=== PATIENT | female | born 1975 | race Caucasian/White ===

== ENCOUNTER 2017-04-04 19:15 | Inpatient (IN) | payer SELFPAY ==
[~2017-04-04] VITALS: Ht 175.3 cm; Wt 57.6 kg
--- NOTE | ~2017-04-04 | PN ---
Unit #: [id number] #: [id number] Patient: MILLI LO [id number] [facility] [address] [place] [address] [id number] I MR#: [id number] NAME: MILLI LO ROOM: P254 Age: 41 Sex: F Admission Date: 04/04/2017 : 1975 Attending Physician: Babak Lux M.D. Admitting Physician: Babak Lux M.D. Primary Care Physician: Primary Care Physician Lauren WOODARD PROGRESS NOTES DATE April 09, 2017 DISCUSSION Ms. Lo is a 41-year-old white female, who was seen today and chart was reviewed and the case was discussed with the staff. She has been anxious, withdrawn, and the staff reports that she has been having (1) behavior. Meanwhile, she has been coming to therapy groups and has been participating. MENTAL STATUS EXAMINATION Young white female, who was casually dressed with fair personal hygiene and appears to be in no acute distress or discomfort. She was awake and alert on interaction with intact orientation. Her mood was anxious with a congruent affect. Her speech is slow and goal-directed. She denies any suicidal or homicidal ideations. Her insight and judgment remain slightly impaired. TREATMENT PLAN 1. We will continue her on her current medications and treatment protocol, and will monitor her response to the medications, and make further adjustments as needed. 2. We will continue to followup. Dictated by... Wesley Sanchez/paige TD: 04/10/2017 09:44 JOB #: [id number] Unit #: [id number] #: [id number] Patient: MILLI LO PROGRESS NOTES Page 1 of 1 X Babak Lux MD PROGRESS NOTE
--- NOTE | ~2017-04-04 | PN ---
Unit #: [id number] #: [id number] Patient: MILLI LO [id number] [facility] [address] [place] [address] [id number] I MR#: [id number] NAME: MILLI LO ROOM: 79 Age: 41 Sex: F Admission Date: 04/04/2017 : 1975 Attending Physician: Babak Lux M.D. Admitting Physician: Babak Lux M.D. Primary Care Physician: Primary Care Physician Lauren WOODARD PROGRESS NOTES DATE April 07, 2017 DISCUSSION Ms. Lo is a 41-year-old white female, who was seen today and chart was reviewed and the case was discussed with the staff. She has been anxious, withdrawn, and seclusive to herself and reports persistent depressive symptoms and treatment for depression. Meanwhile, she has been taking the medications and tolerating them fairly well with no reported side effects. MENTAL STATUS EXAMINATION Middle-aged white female, who was casually dressed with fair personal hygiene and appears to be in no acute distress or discomfort. The patient was awake and alert on interaction with intact orientation. Her mood is anxious and depressed with a congruent affect. Her speech is slow and goal-directed. She denies any suicidal or homicidal ideations. Her insight and judgment remain slightly impaired. TREATMENT PLAN 1. We will continue her on her current medications and treatment protocol, and will monitor her response to the medications, and make further adjustments as needed. 2. We will continue to followup. Dictated by... Wesley Sanchez/paige TD: 04/07/2017 08:13 JOB #: [id number] Unit #: [id number] #: [id number] Patient: MILLI LO PROGRESS NOTES Page 1 of 1 X Babak Lux MD PROGRESS NOTE
--- NOTE | ~2017-04-04 | A ---
[facility] Nutrition Therapy DATE: 04/05/17 Patient: MILLI LOCKE Physician: AFAIRF Address: [address] [place] [address] Room/Bed: [address], Zip: [place] [address] Admit Date: 04/04/17 Date of : [birth year] Height: 5 9 Weight: [phone] NUTRITIONAL ASSESSMENT: REASON: LOW BMI (18.8) PATIENT ADMITTED FOR SI AND SUBSTANCE ABUSE PMH: NONE Anthropometrics: HT: 69", WT: 127#, BMI: 18.8, %IBW: 88 Labs: 04/05/17- GLU: 137, ALL OTHER NURTIONAL LABS WNL Meds: CELEXA, DESYREL, DETOX PROTOCOL Assessment: PATIENT IS A 41 Y/O FEMALE ADMITTED FOR SI AND SUBSTANCE ABUSE. PATIENT IS CURRENLTY UNEMPLOYED, HOMELESS, SMOKES 1-2 PPD, USES HEROIN, AND HAS A HX OF AMPHETAMINE AND ETOH USE. IT IS NOTED THAT PATIENT HAS A HX OF INPATIENT PSYCH AND CHEMICAL DEPENDENCY TREATMENT. UPON ADMIT PATIENT STATED A POOR APPETITE WITH A 30# WEIGHT LOSS X WEEKS, AND SHE HAD NOT SLEPT IN THE LAST 3 DAYS. WEIGHT HX PER [facility] SHOWS A 16# WEIGHT LOSS SINCE AUG 2016. THERE ARE NO SKIN OR GI ISSUES NOTED ATT. PATIENT IS ON A REGULAR DIET WITH LARGE PORTION ENTREES. Dx: UNINTENTIONAL WEIGHT LOSS R/T CURRENT CONDITION, SUBSTANCE ABUSE AEB WEIGHT LOSS, DECREASED APPETITE Intervention: REGULAR DIET, LARGE PORTIONS, MEDS PER MD, PSYCH Monitoring, Evaluation and Goals: 1. ADEQUATE PO INTAKES >50% OF MEALS 2. PREVENT, CORRECT MICRO/MACRO NUTRIENT DEFICIENCIES 3. WEIGHT; PROMOTE A STEADY WEIGHT GAIN TOWARDS A HEALTHY BMI OF 19-25, PREVENT WEIGHT LOSS MONITOR: WEIGHTS, LABS, PO/FLUID INTAKES Recommendations: 1. CONTINUE REGULAR DIET WITH LARGE PORTION ENTREES TOLERATED. OFFER SNACKS BETWEEN MEALS 2. ENCOURAGE ADEQUATE PO AND FLUID INTAKES 3. OBTAIN WEIGHTS ROUTINELY (EVERY 3-4 DAYS) 4. IF PO INTAKES ARE BELOW 50% OF MEALS PLEASE ORDER ENSURE BID TO PROMOTE ADEQUATE KC[facility] Nutrition Therapy DATE: 04/05/17 Patient: MILLI LOCKE Physician: AFAIRF Address: [address] [place] [address] Room/Bed: [address], Zip: [place] [address] Admit Date: 04/04/17 Date of : [birth year] Height: 5 9 Weight: [id number] TO F/U PER PROTOCOL AND PRN R/T PATIENT MILDLY COMPROMISED Respectfully, ASHLEY ALEXANDRE, RD, LD [facility] cc: client file
--- NOTE | ~2017-04-04 | PA ---
Unit #: [id number] #: [id number] Patient: MILLI LO [id number] [facility] [address] [place] [address] [id number] I MR#: [id number] NAME: MILLI LO ROOM: P179 Age: 41 Sex: F Admission Date: 04/04/2017 : 1975 Date of Assessment: 04/05/2017 Attending Physician: Babak Lux M.D. Admitting Physician: Babak Lux M.D. Primary Care Physician: Primary Care Physician No PSYCHIATRIC ASSESSMENT DATE OF SERVICE 04/05/2017. IDENTIFYING DATA Ms. Lo is a 41-year-old single white female, who is a resident of [place], [place], was self-referred to the hospital on a voluntary basis. CHIEF COMPLAINT "I'm really paranoid, but I'm also ." HISTORY OF PRESENT ILLNESS Ms. Lo is a 41-year-old white female with history of substance abuse and mood disorder, who was self-referred to the hospital, reporting anxiety and paranoia and that she is depressed and that she has never been in trouble before, but now she is on probation and that a man got her in trouble for heroin and does report increasing anxiety, depression, irritability, restlessness, feelings of hopelessness and helplessness, and suicidal ideations and stating "anything I don't care, I don't want to be here anymore." The patient stated that she has had thoughts about jumping in front of a car and that she has had thoughts of hurting herself and was unable to contract for safety and as such, recommendation for inpatient level of care for safety and stabilization was made and the patient was stepped up to the inpatient unit. SUBSTANCE ABUSE HISTORY The patient reports history of alcohol and opioid abuse, and reports that she took a couple of hits of cannabis 2 weeks ago and that she has been using opioids on and off for the last couple of years. PAST PSYCHIATRIC HISTORY The patient has had history of inpatient psychiatric hospitalization at [facility] and review of the medical records indicate currently she is not active in any treatment program, is not seeing a psychiatrist, and is not taking any psychotropic medications. PAST MEDICAL HISTORY Hepatitis C and carpal tunnel syndrome. ALLERGIES Sulfa drugs. PERSONAL AND SOCIAL HISTORY Unit #: [id number] #: [id number] Patient: MILLI LO A 41-year-old white female, who reports that she is single, unemployed, and essentially homeless and has poor social support system. MENTAL STATUS EXAMINATION Young white female who was casually dressed with fair personal hygiene, appears to be in no acute distress or discomfort. She was awake and alert on interaction with intact orientation to time, place, and person. Her mood was anxious and depressed with a congruent affect. Her speech was slow and restricted in content. She reports having suicidal ideations, but denies any homicidal ideations, and also denies any auditory or visual hallucinations. Her insight and judgment remain significantly impaired. DIAGNOSTIC IMPRESSION Psychiatric: Major depressive disorder, recurrent, moderate, without psychotic features; opioid dependence, moderate. Medical: Hepatitis C and carpal tunnel syndrome. Stressors: Moderate psychosocial stressors. TREATMENT PLAN 1. The patient has presented with history of mood disorder and substance abuse, and has been decompensating and will need inpatient hospitalization for safety and stabilization. We will start her back on her home medications. We will adjust the medications and monitor response. 2. Supportive therapy was provided to the patient. 3. Safe, structured, and nourishing environment will be provided. ESTIMATED LENGTH OF STAY 4 to 5 days. ABILITY TO HELP SELF Limited. WILLINGNESS TO HELP SELF The patient appears to be willing to help self. STRENGTHS 1. Communicative. 2. Cooperative. PROBLEMS 1. Chronic dysphoric symptoms. 2. Chronic chemical dependency. 3. Poor social support system. DISCHARGE CRITERIA This will be contingent upon the patient's ability to go through detox without having any significant withdrawal symptoms as well as her ability to stay safe to herself, particularly after discharge from the hospital. Dictated by... Wesley Sanchez/valeri TD: 04/05/2017 06:58 JOB #: [id number] Unit #: [id number] #: [id number] Patient: MILLI LO PSYCHIATRIC ASSESSMENT Page 1 of 1 X Babak Lux MD X PSYCHIATRIC ASSESSMENT
--- NOTE | ~2017-04-04 | PN ---
Unit #: [id number] #: [id number] Patient: MILLI LO [id number] [facility] [address] [place] [address] [id number] MR#: [id number] NAME: MILLI LO ROOM: [facility] Age: 41 Sex: F Admission Date: 04/04/2017 : 1975 Attending Physician: Babak Lux M.D. Admitting Physician: Babak Lux M.D. Primary Care Physician: Primary Care Physician Lauren BENITES NOTES DATE OF SERVICE 04/06/2017 DISCUSSION Ms. Lo is a 41-year-old white female who was seen today. Chart was reviewed and case was discussed with the staff. She has been anxious, withdrawn, depressed, and seclusive to herself, but she was lying in her bed, curled up in a blanket, and was not feeling any better and reports persistent depressive symptoms and disturbed sleep and poor energy level and feelings of (1) __. MENTAL STATUS EXAMINATION Young white female who is casually dressed with fair personal hygiene, appears to be in no acute distress or discomfort. She was awake and alert with intact orientation. Her mood is anxious with congruent affect. She denies any suicidal or homicidal ideations. Her insight and judgment remain slightly impaired. TREATMENT PLAN 1. We will continue her on her current medications and treatment protocol. We will monitor her response and make further adjustments as needed. 2. We will continue to follow up. Dictated by... Babak Lux M.D. IAA/bzg TD: 04/06/2017 08:57 JOB #: [id number] Unit #: [id number] #: [id number] Patient: MILLI LO PROGRESS NOTES Page 1 of 1 X Babak Lux MD PROGRESS NOTE
--- NOTE | ~2017-04-04 | PN ---
Unit #: [id number] #: [id number] Patient: MILLI LO [id number] [facility] [address] [place] [address] [id number] I MR#: [id number] NAME: MILLI LO ROOM: P254 Age: 41 Sex: F Admission Date: 04/04/2017 : 1975 Attending Physician: Babak Lux M.D. Admitting Physician: Babak Lux M.D. Primary Care Physician: Primary Care Physician Lauren BENITES NOTES DATE 04/08/2017 DISCUSSION Ms. Lo is a 41-year-old white female who was seen today and chart was reviewed and case was discussed with the staff. She has been anxious, withdrawn and rather seclusive to herself. Meanwhile, she has been cooperative with treatment recommendations and has been taking medications and tolerating them fairly well with no reported side effects. MENTAL STATUS EXAMINATION Young white female who was casually dressed with fair personal hygiene and appears to be in no acute distress or discomfort. She was awake and alert on interaction with intact orientation. Her mood was anxious with congruent affect. Her speech is slow and goal-directed. She denies any suicidal or homicidal ideations. Her insight and judgement remains slightly impaired. TREATMENT PLAN 1. Will continue on current treatment protocol. Will monitor response and make further adjustments as needed. 2. Will continue to follow up. Dictated by... Babak Lux M.D. IAA/aida TD: 04/08/2017 18:19 JOB #: [id number] Unit #: [id number] #: [id number] Patient: MILLI LO PROGRESS NOTES Page 1 of 1 X Babak Lux MD PROGRESS NOTE
--- NOTE | ~2017-04-04 | EKG ---
PATIENT: MILLI LOCKE UNIT #: [id number] Ventricular Rate: 68 BPM Atrial Rate: 68 BPM P-R Interval: 184 ms QRS Duration: 88 ms Q-T Interval: 398 ms QTC Calculation(Bezet): 423 ms P Princeton: 70 degrees Calculated R Princeton: -30 degrees Calculated T Princeton: 47 degrees Diagnosis Line: Normal sinus rhythm Diagnosis Line: Left axis deviation Diagnosis Line: Abnormal ECG Diagnosis Line: When compared with ECG of 07-APR-2017 10:34, Diagnosis Line: (unconfirmed) Diagnosis Line: No significant change was found Diagnosis Line: Confirmed by DANIELLA HAQUE MD ([id number]) on 04/07/2017 Diagnosis Line: 5:29:14 PM INTERPRETING MD: SHABNAM VALDEZ
--- NOTE | ~2017-04-04 | HP ---
Unit #: [id number] #: [id number] Patient: ABBIE LOCKE [id number] [place] [address] [id number] MR#: [id number] NAME: ABBIE LOCKE ROOM: P179 Age: 41 Sex: F Admission Date: 04/04/2017 : 1975 Attending Physician: Babak Lux M.D. Admitting Physician: Babak Lux M.D. Primary Care Physician: Primary Care Physician No HISTORY AND PHYSICAL HISTORY OF PRESENT ILLNESS Abbie is a 41 year old admitted to [facility] because of her continued drug use. She has had other admissions to this facility for the same. PAST MEDICAL HISTORY 1. Long history of illicit substance abuse to include IV heroin. 2. History of alcohol abuse. 3. Hepatitis C. PAST SURGICAL HISTORY Pelvic lap. ALLERGIES Sulfa, tramadol. SOCIAL HISTORY Smokes one pack per day. Denies alcohol. Admits to a long history of illicit substance abuse to include IV heroin. FAMILY HISTORY Medically noncontributory. REVIEW OF SYSTEMS CONSTITUTIONAL: No fever or chills. HEENT: Denies any sore throat, ear pain or runny nose. CARDIOVASCULAR: Denies chest pain, irregular heart rhythm or palpitations. CHEST: Denies shortness of breath or cough. No hemoptysis. GASTROINTESTINAL: Denies nausea, vomiting, diarrhea or chronic constipation. ENDOCRINE: Denies history of increased thirst or urination. No recent significant weight loss or gain. GENITOURINARY: Denies dysuria, frequency, or hematuria. SKIN: Denies any rashes. HEMATOLOGIC: Denies history of increased bleeding or bruising. MUSCULOSKELETAL: Denies any hot, swollen joints. No generalized muscle pain. NEUROLOGIC: Denies problems with vision or speech. No frequent, severe headaches. No numbness, tingling or weakness in any extremities. Denies loss of bladder or bowel control. CURRENT MEDICATIONS 1. Detox protocol Unit #: [id number] #: [id number] Patient: ABBIE LOCKE 2. Celexa 20 mg q day PHYSICAL EXAMINATION GENERAL: Alert, well-nourished, in no apparent distress. VITAL SIGNS: Blood pressure 110/60, heart rate 80, respirations 16, temperature 98.6. WEIGHT: 127. HEIGHT: 5 foot 9 inches. SKIN: Warm and dry without rash or lesion. HEENT: Normocephalic. TMs not viewed. Oral and nasal passages clear. Conjunctivae clear. Pupils equal, round and reactive to light and accommodation. Extraocular movements intact. NECK: Supple without lymphadenopathy or thyromegaly. HEART: Regular rate and rhythm without murmur. LUNGS: Clear. ABDOMEN: Soft, nontender. : Not done. EXTREMITIES: No evidence of cyanosis, clubbing or edema. Moves all extremities without focal deficit. NEUROLOGICAL: Grossly within normal limits. Cranial Nerves: II: Visual fernández are intact. III, IV AND : Extraocular movements are intact. Pupils are equal, round and reactive to light. V: Facial sensation is grossly normal. VII: Facial movements and expression are normal. VIII: Auditory acuity grossly intact. IX, X: Uvula is midline. Phonation is normal. XI: Patient shrugs shoulders and turns head normally. XII: Tongue protrudes in the midline. Sensory and Motor Function: Sensory and motor sensation is grossly normal. Motor: moves all extremities well. Coordination: Gait is normal. Deep Tendon Reflexes: Intact. IMPRESSION Psychiatric admission. RECOMMENDATIONS PSYCHIATRIC: Per psychiatrist. MEDICAL: I see no contraindications to participating in facility's activities. MEDICAL PROGNOSIS Good. MEDICAL CONDITION Stable. Dictated by... Franco RichardsonATaylor. for Wesley Mars/praveen TD: 04/05/2017 22:08 JOB #: [id number] Unit #: [id number] #: [id number] Patient: ABBIE LOCKE HISTORY AND PHYSICAL Page 1 of 1 X Edelmira Slater HISTORY AND PHYSICAL
--- NOTE | ~2017-04-04 | DS ---
Unit #: [id number] #: [id number] Patient: MILLI OL [id number] [facility] [place] [place] [address] [id number] I MR#: [id number] NAME: MILLI LO ROOM: P254 Age: 41 Sex: F Admission Date: 04/04/2017 : 1975 Discharge Date: 04/10/2017 Attending Physician: Babak Lux M.D. Primary Care Physician: Primary Care Physician No DISCHARGE SUMMARY IDENTIFICATION DATA Ms. Lo is a 41-year-old single white female who is a resident of [place], [place], and was self-referred to the hospital on a voluntary basis. DISCHARGE DIAGNOSES PSYCHIATRIC: Major depressive disorder, recurrent, moderate, without psychotic features. Opiate dependence, moderate. MEDICAL: Hepatitis C. Carpal tunnel syndrome. STRESSORS: Mild psychosocial stressors. HISTORY OF PRESENT ILLNESS Same as in initial psychiatric evaluation. PAST PSYCHIATRIC HISTORY Same as in initial psychiatric evaluation. PAST MEDICAL HISTORY Same as in initial psychiatric evaluation. HOSPITAL COURSE The patient was admitted to the adult psychiatric unit at [facility] and was oriented to the hospital environment. Routine p.r.n. medications were initiated, and she was started back on her home medication. Medications were adjusted, and Celexa and Vistaril were given to help her with the anxiety. However, the patient was constantly complaining of increasing anxiety and not participating in treatment-related activities, and started showing some significant med-seeking behavior and manipulative behavior. Medications were adjusted quite regularly until we started realizing that the patient has been showing some med-seeking behavior and is not willing to respond to any of the treatment interventions being made. As such, it was decided that boundary setting would be done, and the patient will be kept on her current regimen and will be discharged home. We will recommend ongoing outpatient psychiatric treatment. DISCHARGE MEDICATIONS 1. Seroquel 50 mg in the morning and in the afternoon and 200 mg at bedtime. 2. Celexa 20 mg a day for depression. 3. Vistaril 50 mg p.r.n. q. 6 hours for anxiety. Unit #: [id number] #: [id number] Patient: MILLI LO CONDITION AT DISCHARGE Stable. PROGNOSIS Fair. Dictated by... Wesley Sanchez/susan TD: 04/12/2017 07:52 JOB #: [id number] DISCHARGE SUMMARY Page 1 of 1 X Babak Lux MD DISCHARGE SUMMARY
[2017-04-05 09:47] LABS: BASOPHIL% 0.3 % (0-2.5); EOSINOPHIL# 0.1 X10e3 (0-0.7); EOSINOPHIL% 2.1 % (0.0-7.0); HEMATOCRIT 35.9 % (35.0-45.0); HEMOGLOBIN 12.1 gm/dL (12.0-16.0); LYMPHOCYTE# 1.7 X10e3 (1.0-3.5); LYMPHOCYTE% 32.8 % (17.0-45.0); MEAN CELL VOLUME 94.5 FL (83-96); MEAN CORPUSCULAR HEMOGLOBIN 31.8 PG (28-34); MEAN CORPUSCULAR HGB CONC 33.6 g/dL (30-36); MEAN PLATELET VOLUME 8.5 FL (6.5-11.5); MONOCYTE# 0.5 X10e3 (0-1.0); MONOCYTE% 10.4 % (3.0-12.0); NEUTROPHIL# 2.8 X10e3 (1.5-7.1); NEUTROPHIL% 54.4 % (40-75); PLATELET COUNT 285 X10e3 (140-420); RED CELL DISTRIBUTION WIDTH 13.9 % (11.0-15.5); WHITE BLOOD COUNT 5.2 X10e3 (4.0-10.5)
[2017-04-05 09:58] LABS: DIFF IND NO
[2017-04-05 10:11] LABS: ALBUMIN SERUM 4.1 g/dL (3.5-5.0); BILIRUBIN,TOTAL 1.1 mg/dL (0.2-2.0); BUN/CREATININE RATIO 27.14; CALCIUM SERUM 9.2 mg/dL (8.4-10.2); CREATININE SERUM 0.7 mg/dL (0.6-1.4); GLOM FILT RATE Estimated 109.1 mL/min (>60); POTASSIUM 3.7 mmol/L (3.5-5.1)
== END 2017-04-10 11:45 | disposition home or self-care (01) | DRG 881 ==
LOC: P1E 21:57 → P2L 04-07 19:06
PROVIDERS: Psychiatry & Neurology Psychiatry
PROC: HZ2ZZZZ Detoxification Services for Substance Abuse Treatment (ICD-10-PCS; principal; 2017-04-04)
DX: F32.9 Major depressive disorder, single episode, unspecified (principal); F11.20 Opioid dependence, uncomplicated; F17.200 Nicotine dependence, unspecified, uncomplicated; Z88.2 Allergy status to sulfonamides; B19.20 Unspecified viral hepatitis C without hepatic coma
CPT/HCPCS: 80053; 84703; 85025; 93005